=== PATIENT | female | born 1985 | race Caucasian/White ===

== ENCOUNTER → 2018-10-22 | Outpatient (CLI) | payer OTHER ==
--- NOTE | 2018-10-22 08:28 | RAD ---
Abdominal ultrasound, 10/22/2018: HISTORY: Epigastric pain The gallbladder is within normal limits in size. There is no sonographic evidence of cholelithiasis. The gallbladder medel are not thickened. The common hepatic duct is of normal caliber. The visualized portions of the liver, pancreas, spleen and both kidneys are unremarkable. The abdominal aorta and inferior vena cava show no abnormality. No free fluid is evident in the abdomen. IMPRESSION: No significant abnormality is detected. Electronically signed by: tSefan Villegas MD (10/22/2018 8:24 AM) [facility]
== END | disposition home or self-care (01) ==
LOC: US 07:31
PROVIDERS: ATTEND Internal Medicine Gastroenterology
DX: R10.13 Epigastric pain (principal); R11.2 Nausea with vomiting, unspecified
CPT/HCPCS: 76700